=== PATIENT | male | born 1980 | race Caucasian/White ===

== ENCOUNTER 2020-02-21 18:59 | Emergency (ER) | payer OTHER, SELFPAY ==
[~2020-02-21] VITALS: Ht 177.8 cm; Wt 90.7 kg
[2020-02-21 19:15] VITALS: Ht 177.8 cm; Wt 90.7 kg
[2020-02-21 21:18] VITALS: BP 121/76
== END 2020-02-21 21:18 | disposition home or self-care (01) ==
LOC: ED 18:59
DX: J06.9 Acute upper respiratory infection, unspecified (principal); Z20.828 Contact with and (suspected) exposure to other viral communicable diseases
CPT/HCPCS: J1885; Q0092; U0003-CS

== ENCOUNTER 2020-06-01 12:11 | Emergency (ER) | payer OTHER, SELFPAY ==
[~2020-06-01] VITALS: Ht 177.8 cm; Wt 86.2 kg
[2020-06-01 12:13] VITALS: BP 139/84; Ht 177.8 cm; Wt 86.2 kg
== END 2020-06-01 14:08 | disposition home or self-care (01) ==
LOC: ED 12:11
DX: K57.92 Diverticulitis of intestine, part unspecified, without perforation or abscess without bleeding (principal); Z20.828 Contact with and (suspected) exposure to other viral communicable diseases
CPT/HCPCS: U0003-CS